=== PATIENT | male | born 1960 | race Caucasian/White ===

== ENCOUNTER 2017-03-22 13:20 | Emergency (ER) | payer MEDICARE ==
[2017-03-22 15:06] VITALS: O2SAT 96
--- NOTE | 2017-03-22 15:50 | ERPHSYRPT ---
- History of Present Illness Time Seen by Provider: 03/22/17 15:45 Source: patient, family Exam Limitations: no limitations Patient Subjective Stated Complaint: PT REPORTS FALLING 4 DAYS AGO-HAD LOC WAS TX AT [facility] ED-STATES THAT YESTERDAY HE BEGAN HAVING BLURRED VISION-STATES IT FEELS LIKE HIS EYES ARE TRYING TO FOCUS ON DIFFERENT THINGS-DENIES PAIN- DENIES NUMBNES SOR TINLGING Triage Nursing Assessment: PT PINK WARM ET DRY-PUPILS SLOW TO RESPOND-PT ALERT ET ANSWERING QUESTIONS CORRECTLY-ABLE TO MOVE ALL EXTREMITIES WITH EASE Physician History: The patient is a 56-year-old male with family complaining that he fell off a roof 4 days ago losing consciousness briefly. He was evaluated at [facility] and found to have a fracture of his right clavicle and of his right scapula. The imaging study of his head was negative per patient report. Yesterday he began to have visual problems. He noticed after watching TV everything was blue. And today his eyes are not focusing normally. He is having a hard time describing it but he says the objects don't appear where they should be. He does not have a headache. He has an orthopedic surgeon visit on Friday. His past medical history is significant for pancreatic and renal transplants. He is on dialysis. Occurred: days ago (4) Reason for Fall: slipped, fell from height Injuries/Pain Location: upper extremity Loss of Consciousness: brief (seconds) Severity of Pain-Max: mild Severity of Pain-Current: mild Modifying Factors: Improves With: nothing Associated Symptoms (Fall): vision changes Allergies/Adverse Reactions: No Known Drug Allergies Allergy (Verified 03/22/17 14:22) Home Medications: Lisinopril 20 mg [Zestril 20 MG] 20 mg PO BID 03/22/17 [History] Hx Tetanus, Diphtheria Vaccination/Date Given: No Hx Influenza Vaccination/Date Given: No Hx Pneumococcal Vaccination/Date Given: No Immunizations Up to Date: Yes - Review of Systems Constitutional: No Fever, No Chills Eyes: Vision Changes Ears, Nose, & Throat: No Symptoms Respiratory: No Cough, No Dyspnea Cardiac: No Chest Pain, No Edema, No Syncope Abdominal/Gastrointestinal: No Abdominal Pain, No Nausea, No Vomiting, No Diarrhea Genitourinary Symptoms: No Dysuria Musculoskeletal: Fall, Injury Skin: No Rash Neurological: No Dizziness, No Focal Weakness, No Sensory Changes Psychological: No Symptoms Endocrine: No Symptoms Hematologic/Lymphatic: No Symptoms Immunological/Allergic: No Symptoms All Other Systems: Reviewed and Negative - Past Medical History Pertinent Past Medical History: Yes Neurological History: Stroke Cardiac History: Hypertension Endocrine Medical History: Diabetes Type I History: Dialysis Other Medical History: NEUROPATHY. SKIN CANCER - Past Surgical History Past Surgical History: Yes Cardiac: CABG Gastrointestinal: Hernia Repair Genitourinary: Kidney Transplant Musculoskeletal: Orthopedic Surgery Other Surgical History: KIDNEY ET PANCREAS TRANSPLANT - Social History Smoking Status: Never smoker Drug Use: none Patient Lives Alone: No Significant Family History: diabetes, hypertension - Nursing Vital Signs Nursing Vital Signs: Initial Vital Signs Temperature 98.1 F Temperature Source Oral Pulse Rate 76 Respiratory Rate 16 Blood Pressure [] 197/95 Pain Intensity 0 - Francois Coma Score Best Eye Response (Varnell): (4) open spontaneously Best Verbal Response (Varnell): (5) oriented Best Motor Response (Francois): (6) obeys commands Varnell Total: 15 - Physical Exam General Appearance: no apparent distress, alert Head Injury: no evidence of injury Eye Exam: PERRL/EOMI, other (Examination of the eyes is limited because the patient has known poor vision. His baseline is poor peripheral vision as well. He's had numerous eye surgeries per patient report.) ENT Exam: airway nml Neck Exam: normal inspection, No tenderness Respiratory/Chest Exam: normal breath sounds, No chest tenderness, No respiratory distress Cardiovascular Exam: normal heart sounds, regular rate/rhythm Gastrointestinal Exam: soft, No tenderness, No distention, No guarding, No ecchymosis Rectal Exam: not done Back Exam: normal inspection, No vertebral tenderness Extremity Exam: other (right clavicle and scapula tenderness) Neurologic Exam: alert, oriented x 3, cooperative, sensation nml, No motor deficits Skin Exam: normal color, warm, dry SpO2 Interpretation: normal SpO2: 96 Oxygen Delivery: Room Air - CT Exams Head CT Interpretation: Negative (per Dr Lewis), Tele-radiologist Report Ordered Tests: Active Orders 24 hr Category Date Time Status HEAD WITHOUT CONTRAST [CT] Stat Exams 03/22/17 15:04 Taken - Progress Progress: unchanged Counseled pt/family regarding: diagnosis, rad results - Departure Time of Disposition: 17:24 Departure Disposition: Transfer (Transfer to [facility] per Drs. Yadav and Geraldo) Clinical Impression: Visual changes Condition: Stable Critical Care Time: No
[2017-03-22 17:35] VITALS: BP 192/93; PULSE 71
--- NOTE | 2017-03-22 21:20 | XRAY ---
Indication: Blurred vision. Multiple contiguous axial images obtained through the head without contrast. Comparison: September 17, 2010. Again normal appearing brain parenchyma, ventricles, and bony calvarium. Visualized paranasal sinuses and mastoid air cells are clear. Impression: Stable normal CT head without contrast exam. Comment: Preliminary interpretation was made by [facility]. No discrepancy. CTDI 69.66
== END 2017-03-22 20:11 | disposition short-term general hospital (02) ==
LOC: ED 13:20
DX: H53.9 Unspecified visual disturbance (principal); Z99.2 Dependence on renal dialysis; Z94.0 Kidney transplant status; Z94.83 Pancreas transplant status; W13.2XXD Fall from, out of or through roof, subsequent encounter
CPT/HCPCS: 70450; 99285